=== PATIENT | female | born 1970 | race Caucasian/White ===

== ENCOUNTER 2019-04-18 21:25 | Emergency (ER) | payer SELFPAY ==
[~2019-04-18] VITALS: Ht 182.9 cm; Wt 77.0 kg
[2019-04-18 21:38] VITALS: BP 140/80
== END 2019-04-19 01:40 | disposition left against medical advice (07) ==
LOC: ER 21:25
DX: Z53.21 Procedure and treatment not carried out due to patient leaving prior to being seen by health care provider (principal)